=== PATIENT | male | born 1940 | race Caucasian/White ===

== ENCOUNTER 2016-08-02 20:39 | Inpatient (IN) | payer MEDICARE ==
[~2016-08-02] VITALS: Ht 175.2 cm; Wt 77.4 kg
[2016-08-02] VITALS (7 sets, daily range): BP systolic 112–137; BP diastolic 32–67
--- NOTE | ~2016-08-02 | PR ---
[place], [place] PROGRESS NOTE NAME: LINK VENTURA JR UNIT #: [id number] ROOM: 525 DOCTOR: MEÑO KHAN MD BIRTHDATE: [birth year] DOS: 08/06/2016 PULMONARY FOLLOWUP NOTE SUBJECTIVE: He has been noted comfortable at this time with reduction in shortness of breath. The coughing has been resolving. There were no symptoms of chest pain. Bronchoscopy completed yesterday, significant reduction in the cough. OBJECTIVE: VITAL SIGNS: Normal temperature, respiratory rate 20, heart rate 81, blood pressure 122/54. The pulse oxygen saturation on 3 liters nasal cannula was 96% saturation. HEENT: Showed no new change. NECK: Supple. CARDIOVASCULAR: S1, S2 is audible. LUNGS: Noted without any wheezing or crackles at this time. ABDOMEN: Soft, nontender. LABORATORY DATA: CBC this morning was noted as mild anemia, otherwise normal CBC. Culture of the sputum of the patient noted moderate growth of Pseudomonas aeruginosa sensitive to all the antibiotics including fluoroquinolones. The bronchial washing culture noted with heavy growth of gram-negative bacilli. IMPRESSION: 1. The patient with acute Pseudomonas aeruginosa tracheobronchitis with acute exacerbation of chronic obstructive pulmonary disease as well. 2. History of chronic nicotine dependence. PLAN OF TREATMENT: Continuation of antibiotics, bronchodilators and oxygen supplementation. Potential discharge, the patient could be considered for use of the ciprofloxacin as the antibiotic of choice for this patient for oral medications. Other previous treatment at this time to be continued. Usual care. [place], [place] PROGRESS NOTE NAME: LINK VENTURA JR UNIT #: [id number] ROOM: [facility] DOCTOR: MEÑO KHAN MD BIRTHDATE: [birth year] MEÑO HOLDER MD CM:PNTRANS [id number] MEÑO JENNINGS MD 08/07/16 9207 interface
--- NOTE | ~2016-08-02 | CON ---
[place], [place] REPORT OF CONSULTATION [facility]: [id number] UNIT #: [id number] ROOM: 525 DOCTOR: MEÑO KHAN MD BIRTHDATE: [birth year] DOS: 08/03/2016 PULMONARY CONSULTATION EVALUATION AND MANAGEMENT Consultation was requested by the hospitalist services for assessment of the abnormal respiratory symptoms. HISTORY OF PRESENT ILLNESS: This is a 76-year-old white male known to me with history of uncomplicated moderate persistent bronchial asthma as well as centrilobular emphysema and other problems. The patient presented to the hospital for the patient as he has been noted with increased coughing with sputum expectoration and shortness breath, which has been present for about 3 days. The patient has not been seen in my office for the patient or seen by any physician as he was afraid of getting flu infection. He has been noted marked worsening of the respiratory symptoms and finally decided to come to the Emergency Room for patient on 08/02/2016. The patient has been assessed and the patient has been hospitalized patient for further medical management of the ongoing respiratory symptoms with exacerbation of COPD and other problems. REVIEW OF SYSTEMS: CONSTITUTIONAL: The patient noticed symptoms of fatigue and tiredness. Denies symptoms of fever or chills. EYES: Denies any burning, redness, or tenderness. EARS, NOSE, AND THROAT: No sore throat, hoarseness, otalgia, or postnasal drainage. CARDIOVASCULAR: Denies anginal pain, edema of the lower extremities or palpitations. GASTROINTESTINAL: Denies dysphagia, nausea, vomiting, diarrhea, abdominal pain, hematemesis, melena, or hematochezia. GENITOURINARY: History of bladder cancer, which has been known previously, treated for this patient with chemotherapy and conservative treatment. Aggressive treatment such as cystectomy was not done for the patient because of the patient's poor pulmonary status with advanced COPD. PAST MEDICAL HISTORY: 1. History of chronic persistent nicotine dependence. 2. History of vagus nerve compression. 3. Gastroesophageal reflux. 4. Essential hypertension. 5. Hypercholesterolemia. 6. Chronic hypercapnic and hypoxic respiratory failure, use of oxygen 3 LPM. PAST SURGICAL HISTORY: 1. Fracture of the nose of the patient, which has been corrected many years ago. 2. Right carotid endarterectomy. 3. Cataract extraction with lens implantation. 4. Past therapeutic bronchoscopies. 5. Cystoscopy and biopsy of the bladder mass. [place], [place] REPORT OF CONSULTATION NAME: LINK [facility]ENTUR[facility] JR [facility]: [id number] UNIT #: [id number] ROOM: [facility] DOCTOR: MEÑO KHAN MD BIRTHDATE: [birth year] SOCIAL HISTORY: The patient is , lives at home and has 4 children. Denies history of alcohol or illicit drug use. Tobacco use was noted for this patient as about half to a pack of cigarettes per day for this patient at home and previously has used up to 2 packs of cigarettes per day. There was history of occupational related pulmonary exposure history. FAMILY HISTORY: The patient was noted with mother from complications of lung cancer at the age of 6767 years old. Father from complications of COPD. CURRENT MEDICATIONS: Administered noted use of IV Solu-Medrol, DuoNeb, Lovenox for DVT prophylaxis, Zithromax, Rocephin and other p.r.n. medications administration. DRUG ALLERGIES: Noted allergy to MORPHINE SULFATE causing anxiety. PHYSICAL EXAMINATION: GENERAL: A 76-year-old male who has been currently noted awake and alert without any distress. Height of 5 feet 9 inches, weight 170 pounds, BMI 25.2, using oxygen supplementation nasal cannula. VITAL SIGNS: Normal temperature since admission, respiratory rate of 18-20, heart rate of 91-100, blood pressure 110/54-129/67. The pulse oxygen saturation on 3 liters nasal cannula 95% saturation. HEENT: On examination, head was atraumatic. Eyes nonicterus. NECK: Supple. Oral mucosa was moist. CARDIOVASCULAR SYSTEM: S1, S2 audible. LUNGS: Diffuse reduction in breath sounds with expiratory wheezing without any crackles. ABDOMEN: Soft, nontender. Bowel sounds present. CENTRAL NERVOUS SYSTEM: For this patient cranial nerves 2-12 intact. No focal deficit. MUSCULOSKELETAL SYMPTOMS: No deformities. SKIN: No lesions or rashes. Chronic bruising of the skin was noted related to medications. LABORATORY DATA: CMP of the patient that were done yesterday for the patient in the Emergency Room, BUN of 36, creatinine was normal, glucose 106, carbon dioxide 36. Troponin for the patient noted as normal, first set. Arterial blood gas on 4 liters oxygen, pH of 7.43, pCO2 of 51, pO2 of 83.4. The CK-MB, troponin of the patient, which was done for the patient shows MB mildly elevated 4.0, normal CK and troponin. CBC of the patient of this morning, WBC count normal, hemoglobin 12.4, hematocrit 39.5 and platelet count was normal. The repeat CK-MB and troponin of the patient this morning was noted MB minimally elevated at 3.9, normal CPK and troponins. CMP this morning, BUN 31, glucose was normal. CO2 37, remaining electrolytes were normal. The chest x-ray of the patient that was done for the patient in the hospital for the patient yesterday in the Emergency Room, 1 view of the patient shows hyperinflated changes of COPD without any acute pulmonary infiltration. The patient has x-ray of the abdomen for the patient was described without any acute abnormalities. [place], [place] REPORT OF CONSULTATION NAME: LINK VENTURA JR UNIT #: [id number] ROOM: [facility] DOCTOR: MEÑO KHAN MD BIRTHDATE: [birth year] IMPRESSION: 1. The patient who has been currently admitted to the hospital with history of chronic hypercapnia and hypoxic respiratory failure with acute exacerbation of chronic obstructive pulmonary disease and acute bacterial bronchitis. 2. Chronic nicotine dependency. 3. Mild azotemia for this patient, medication related or intravascular volume depletion of the patient has been considered. 4. Metabolic alkalosis secondary to chronic hypercarbia. 5. History of cancer of the bladder as well. PLAN OF TREATMENT: Continue antibiotics, bronchodilators and oxygen supplementation. Obtain the sputum for Gram stain and culture. Mucinex for the patient will be added to the treatment as well. Further treatment changes will be done based on the progression of the illness. Usual care. Other treatment and plan of therapy. Obtain a PA and lateral chest x-ray of the patient to assess any occult pneumonia. MEÑO HOLDER MD CM:CONSTR:REPORT OF CONSULTATION 1036 08/03/16 2157 interface
--- NOTE | ~2016-08-02 | PR ---
[place], [place] PROGRESS NOTE NAME: LINK VENTURA JR UNIT #: [id number] ROOM: 525 DOCTOR: MEÑO KHAN MD BIRTHDATE: [birth year] DOS: 08/04/2016 PULMONARY PROGRESS NOTE SUBJECTIVE: The patient continues with cough and shortness of breath and wheezing. The symptoms have been noted partially improved. Has been noted only scant amount of sputum expectoration, which was sent for culture ____. The patient with final culture results were pending. Preliminary showing normal moisés. OBJECTIVE: VITAL SIGNS: For the patient, which has been recorded showed the temperature of the patient recorded as normal. The respiratory rate of 18, heart rate of 89, blood pressure of 92/52. The pulse oxygen saturation 3 liters nasal cannula was 97% saturation. HEENT: Examination shows head was atraumatic. NECK: Supple. CARDIOVASCULAR SYSTEM: S1, S2 audible. LUNGS: Moderate decreased breath sound, diffuse expiratory wheezing, no crackles. ABDOMEN: Soft, nontender. LABORATORY DATA: BMP today: BUN 35, creatinine was normal. CO2 of 35. CBC today: WBC count 13,000, hemoglobin 11.6, hematocrit 36.9, platelet count 237,000. The preliminary culture of the sputum for the patient was pending. IMPRESSION: The patient with ongoing acute exacerbation of chronic obstructive pulmonary disease with acute tracheobronchitis of the patient was noted. Chest x-ray of the patient on 08/03/2016 does not show any pulmonary infiltration, changes of chronic obstructive pulmonary disease were present. PLAN OF TREATMENT: The patient had been assessed ____ for the bronchoscopy of the patient to be done in the morning to help clear the mucus impaction of major airways. Risk and benefits has been understood by the patient. Procedure was scheduled to be done in the morning. [place], [place] PROGRESS NOTE NAME: LINK VENTURA JR UNIT #: [id number] ROOM: [facility] DOCTOR: MEÑO KHAN MD BIRTHDATE: [birth year] MEÑO HOLDER MD CM:PNTRANS [phone] MEÑO JENNINGS MD 08/05/16 0725 interface
--- NOTE | ~2016-08-02 | PR ---
[place], [place] PROGRESS NOTE NAME: LINK VENTURA JR UNIT #: [id number] ROOM: 525 DOCTOR: MEÑO KHAN MD BIRTHDATE: [birth year] DOS: 08/05/2016 PULMONARY PROGRESS NOTE SUBJECTIVE: The patient was seen and examined on 08/05/2016. He has been still noted symptoms of coughing, wheezing and shortness breath. He was noted n.p.o. past midnight for bronchoscopy, which is planned for today. The patient denies any symptoms of chest pain or any abdominal pain. OBJECTIVE: VITAL SIGNS: For the patient which has been recorded showed the temperature noted as normal, respiratory rate 17, heart rate 95, blood pressure 137/65 132/66. Pulse oxygen saturation of the patient recorded on 3 L nasal cannula 94% saturation. HEENT: No acute change. NECK: Supple. Head was atraumatic. CARDIOVASCULAR SYSTEM: S1, S2 audible. LUNGS: Noted with persistent expiratory wheezing bilaterally. There were no crackles. ABDOMEN: Soft, nontender. LABORATORY DATA: Preliminary culture results of the sputum of the patient noted moderate growth of gram-negative bacilli at this time with pending identification sensitivities. CBC of the patient this morning, WBC count 13.6, hemoglobin 12.7, hematocrit 41.2 with the platelet count of 279,000, 92% segmented neutrophil. IMPRESSION: 1. The patient with the severe acute tracheobronchitis gram-negative infection, pending identification and sensitivity, persistent respiratory symptoms, preoperative bronchoscopy. 2. History of chronic nicotine dependence. PLAN OF TREATMENT: No changes in the plan of management, except change in the antibiotic of the patient for better gram-negative coverage with the use of the IV Zosyn until the culture results will be known. The possibility of this current problem would remain for this patient as Stenotrophomonas maltophilia for the patient consideration as well. The bronchoscopy will be completed. If any modification in the treatment of the patient necessary will be ordered after the bronchoscopy. [place], [place] PROGRESS NOTE NAME: LINK VENTURA JR UNIT #: [id number] ROOM: 525 DOCTOR: MEÑO KHAN MD BIRTHDATE: [birth year] MEÑO HOLDER MD CM:PNTRANS [phone] MEÑO JENNINGS MD 08/06/163 interface
--- NOTE | ~2016-08-02 | PROC NOTE ---
[place], [place] PROCEDURE NOTE NAME: [facility] JR [id number] UNIT #: [id number] ROOM: [facility] DOCTOR: GLORY JENNINGS MD,MEÑO BIRTHDATE: [birth year] DOS: 08/05/2016 PROCEDURE: Bronchoscopy. PREOPERATIVE DIAGNOSES: Persistent cough and wheezing with maximum medical therapy. POSTOPERATIVE DIAGNOSES: Evidence of mucus impaction, ongoing tracheobronchitis were noted. There were no endobronchial lesions. PROCEDURE DESCRIPTION: Informed consent was obtained from the patient. He was brought to the OR and placed in the supine position. Conscious sedation administered by the Anesthesia Department. After achieving appropriate sedation, airway introduced into the mouth. Bronchoscope advanced to the airway into laryngeal area. The epiglottis and vocal cords were seen. The bronchoscope for this patient advanced to the vocal cords into the tracheal lumen. The tracheal lumen shows moderate amount of very thick mucoid secretion with some purulent secretions suctioned out to the herminia level. All the secretions was suctioned out. The herminia was noted sharp. Right upper, right middle, right lower, left upper, and lingular lower lobe bronchi were all examined. The bronchial washings for this patient were sent for all the appropriate cultures. Procedure well tolerated without any complications. Postoperative findings were discussed with the patient's spouse, the patient after the completion of the procedure. No immediate changes in the treatment for the patient necessary needs to be done. MEÑO HOLDER MD CM:PROCNOTE:PROCEDURE NOTE [phone] MEÑO JENNINGS MD
[~2016-08-02 20:39] MED LIST: ALBUTEROL; ALBUTEROL SULF0.5 M1 INH; ALBUTEROL2.5 MG/0.5 INH; ASPIRIN ADULT L81 M1 PO; ASPIRIN325 MG PO; ATENOLOL50 M1 PO; ATENOLOL50 MG PO; ATIVAN0.5 MG PO; BACTRIM DS 8001 TA1 PO; CEFUROXIME AXE250 MG PO; CENTRUM SILVER1 TA2 PO; CHEST CONGESTI400 MG PO; CILOXAN 5 ML5 ML OT; CIPRO500 MG PO; DALI500T PO; DALIRESP500 MC1 PO; DELTASONE10 MG PO; FLUNISOLID0.025 MG/A NS; FUROSEMIDE20 MG; FUROSEMIDE20 MG PO; GUAFENESIN400 MG PO; GUAIFENESIN600 MG PO; GUIAFENESIN/PSE1 TE1; HYDROCODONE BIT1 T11 PO; KEFLEX500 MG PO; LASIX20 MG PO; MAGOX 400400 MG PO; MUCINEX600 MG PO; MULTIVITAMIN1 TA1 PO; OMEPRAZOLE D/R20 MG PO; OMEPRAZOLE20 M2 PO; OXYCODONE AND A1 TA4 PO; OXYGEN NAS; PERCOCET 325 MG1 TA6 PO; PREDNISONE; PREDNISONE PO; PREDNISONE10 MG PO; PREDNISONE20 M1 PO; PREDNISONE20 MG PO; PROCHLORPERAZIN10 MG PO; PROVENTIL; PROVENTIL0.09 MG/A1 INH; Percocet 325 MG1 TAB PO; SIMVASTATIN80 MG PO; SPIRIVA18 MCG IH; SPIRIVA18 MCG INH; SPIRIVA18 MCG PO; SYMBICORT1 AE1 IH; SYMBICORT1 AE1 INH; TURMERIC500 MG PO; VENTOLIN 02.5 MG/3 M NEB; VITAMIN C1000 M5 PO; VITAMIN D1000 IU PO; ZITHROMAX250 MG PO; ZOCOR20 MG PO; ZOCOR80 MG PO; [UNRECOGNIZED DRUG - OTHER] PO
[2016-08-02 21:15] LABS: BASO % 0.2 % (0.0-1.0); HEMATOCRIT 39.3 % (42.0-52.0); HEMOGLOBIN 12.4 g/dl (14.0-18.0); LYMPH # 1.8 10*3/uL (1.3-4.4); LYMPH % 16.7 % (27.0-41.0); MEAN CELL VOLUME 98.3 fl (80.0-94.0); MEAN CORPUSCULAR HGB CONC 31.6 g/dl (33.0-37.0); MEAN PLATELET VOLUME 9.4 fl (9.6-12.3); MONO # 0.7 10*3/uL (0.1-1.0); MONO % 6.6 % (3.0-9.0); NEUT % 76.1 % (47.0-73.0); PLATELET COUNT AUTOMATED 224 10*3/uL (130-400); RED CELL DISTRI WIDTH 12.9 % (0-14.5); WHITE BLOOD COUNT 10.5 10*3/uL (4.8-10.8)
[2016-08-02 21:32] LABS: ALBUMIN 3.3 gm/dl (3.1-4.5); ALKALINE PHOSPHATASE 101 U/L (45-117); BILIRUBIN, TOTAL 0.5 mg/dl (0.2-1.0); BUN 36 mg/dl (7-24); CARBON DIOXIDE 36 mmol/L (21-32); CHLORIDE 98 mmol/L (98-107); EST GLOM FILT AFRICAN AMERICAN > 60 ml/min; GLUCOSE 106 mg/dL (65-99); MAGNESIUM 2.8 mg/dL (1.5-2.1); POTASSIUM 4.5 mmol/L (3.5-5.1); SGOT/AST 21 IU/L (3-35); SGPT/ALT 24 U/L (12-78); SODIUM 142 mmol/L (136-145); TOTAL PROTEIN 6.8 gm/dL (6.4-8.2)
[2016-08-02 21:41] LABS: ABG BASE EXCESS 8.1 mmol/L (-2.0-2.0); ABG CO2 CONTENT 35.1 mmol/L (23-27); ABG HCO3 33.5 mmol/l (22-26); ABG TEMPERATURE 98.3 F (98.0-99.0); ARTERIAL BLOOD GAS PH 7.43 (7.35-7.45); ARTERIAL BLOOD GAS PO2 83.5 mmHg (80-90)
[2016-08-02] MEDS ORDERED: CARAFATE1 G1 PO (21:41)
[2016-08-02] MEDS ORDERED: PLAVIX75 M1 PO (21:42)
[2016-08-03] VITALS: BP 118/54
[2016-08-03 00:39] LABS: TROPONIN I 0.028 ng/ml (<0.045)
[2016-08-03 06:34] LABS: BASO % 0.2 % (0.0-1.0); HEMATOCRIT 39.5 % (42.0-52.0); HEMOGLOBIN 12.4 g/dl (14.0-18.0); LYMPH # 0.5 10*3/uL (1.3-4.4); LYMPH % 9.3 % (27.0-41.0); MEAN CELL VOLUME 98.3 fl (80.0-94.0); MEAN CORPUSCULAR HGB 30.8 pg (27.0-31.0); MEAN CORPUSCULAR HGB CONC 31.4 g/dl (33.0-37.0); MEAN PLATELET VOLUME 9.7 fl (9.6-12.3); MONO # 0.1 10*3/uL (0.1-1.0); MONO % 0.9 % (3.0-9.0); NEUT # 5.1 10*3/uL (2.3-7.9); NEUT % 88.9 % (47.0-73.0); PLATELET COUNT AUTOMATED 228 10*3/uL (130-400); RED BLOOD COUNT 4.02 10*6/uL (4.50-5.90); RED CELL DISTRI WIDTH 12.8 % (0-14.5); WHITE BLOOD COUNT 5.7 10*3/uL (4.8-10.8)
[2016-08-03 06:44] LABS: CKMB 3.9 ng/ml (0.5-3.6); TROPONIN I 0.016 ng/ml (<0.045)
[2016-08-03 07:06] LABS: INTERNATIONAL NORM RATIO 0.9 (2.0-3.5); PROTHROMBIN TIME 9.4 SECONDS (9.0-12.4)
[2016-08-03 07:06] LABS: ALBUMIN 3.2 gm/dl (3.1-4.5); BUN 31 mg/dl (7-24); CARBON DIOXIDE 37 mmol/L (21-32); CHLORIDE 99 mmol/L (98-107); CHOLESTEROL 186 mg/dL (<200); EST GLOM FILT AFRICAN AMERICAN > 60 ml/min; GLUCOSE 132 mg/dL (65-99); MAGNESIUM 2.6 mg/dL (1.5-2.1); POTASSIUM 4.4 mmol/L (3.5-5.1); SGOT/AST 19 IU/L (3-35); SGPT/ALT 21 U/L (12-78); SODIUM 142 mmol/L (136-145)
[2016-08-03 07:14] LABS: ALKALINE PHOSPHATASE 96 U/L (45-117); BILIRUBIN, TOTAL 0.4 mg/dl (0.2-1.0); FREE T4 1.22 ng/dl (0.76-1.46); HDL CHOLESTEROL 104 mg/dl (40-60); LDL CHOLESTEROL 73 mg/dL (9-159); THYROID STIM HORMONE (HS) 0.401 uIU/ml (0.358-4.75); TOTAL PROTEIN 6.5 gm/dL (6.4-8.2); TRIGLYCERIDES 47 mg/dl (<150); VLDL CHOLESTEROL 9 mg/dL (6-40)
[2016-08-03 07:23] LABS: BILIRUBIN NEGATIVE (NEGATIVE); BLOOD NEGATIVE (NEGATIVE); CLARITY CLEAR (CLEAR); COLOR YELLOW (YELLOW); GLUCOSE TRACE (NEGATIVE); KETONE NEGATIVE (NEGATIVE); LEUKO ESTERASE NEGATIVE (NEGATIVE); NITRITE NEGATIVE (NEGATIVE); PH 6.5 (5.0-9.0); PROTEIN NEGATIVE (NEGATIVE); SPECIFIC GRAVITY 1.015 (1.005-1.030); UROBILINOGEN 0.2 E.U./dl (0.2-1.0)
[2016-08-03 07:39] LABS: VITAMIN D, 25-HYDROXY 41.2 ng/mL (30-100)
[2016-08-03 07:40] LABS: FOLIC ACID 14.72 ng/mL (>5.38)
[2016-08-03 07:54] LABS: BACTERIA TRACE; EPITHELIAL CELLS 0-2; URINE REFLEX COMMENT NO (NO)
[2016-08-03 08:00] VITALS: BP 116/54
[2016-08-03 08:28] LABS: HEMOGLOBIN A1c 5.5 % (4.8-5.6)
[2016-08-03 12:00] VITALS: BP 126/58
[2016-08-03 12:25] LABS: CKMB 4.2 ng/ml (0.5-3.6); TROPONIN I 0.018 ng/ml (<0.045)
[2016-08-03 16:00] VITALS: BP 117/51
[2016-08-03 20:00] VITALS: BP 110/85
[2016-08-04] VITALS: BP 114/61
[2016-08-04 06:50] LABS: HEMATOCRIT 36.9 % (42.0-52.0); HEMOGLOBIN 11.6 g/dl (14.0-18.0); IG # 0.1 10*3/uL (0.0-0.1); LYMPH # 1.5 10*3/uL (1.3-4.4); LYMPH % 11.2 % (27.0-41.0); MEAN CELL VOLUME 99.2 fl (80.0-94.0); MEAN CORPUSCULAR HGB 31.2 pg (27.0-31.0); MEAN CORPUSCULAR HGB CONC 31.4 g/dl (33.0-37.0); MEAN PLATELET VOLUME 9.7 fl (9.6-12.3); MONO # 0.8 10*3/uL (0.1-1.0); MONO % 5.9 % (3.0-9.0); NEUT # 10.7 10*3/uL (2.3-7.9); NEUT % 82.5 % (47.0-73.0); PLATELET COUNT AUTOMATED 237 10*3/uL (130-400); RED BLOOD COUNT 3.72 10*6/uL (4.50-5.90); RED CELL DISTRI WIDTH 13.1 % (0-14.5)
[2016-08-04 07:29] LABS: BUN 35 mg/dl (7-24); CARBON DIOXIDE 35 mmol/L (21-32); CHLORIDE 103 mmol/L (98-107); EST GLOM FILT AFRICAN AMERICAN > 60 ml/min; GLUCOSE 125 mg/dL (65-99); POTASSIUM 4.4 mmol/L (3.5-5.1); SODIUM 144 mmol/L (136-145)
[2016-08-04 08:00] VITALS: BP 142/73
[2016-08-04 12:00] VITALS: BP 92/52
[2016-08-04 16:00] VITALS: BP 133/62
[2016-08-04 20:00] VITALS: BP 123/60
[2016-08-05] VITALS (9 sets, daily range): BP systolic 128–142; BP diastolic 53–78
[2016-08-05 06:55] LABS: HEMATOCRIT 41.2 % (42.0-52.0); HEMOGLOBIN 12.7 g/dl (14.0-18.0); MEAN CELL VOLUME 99.3 fl (80.0-94.0); MEAN CORPUSCULAR HGB 30.6 pg (27.0-31.0); MEAN CORPUSCULAR HGB CONC 30.8 g/dl (33.0-37.0); MEAN PLATELET VOLUME 9.6 fl (9.6-12.3); PLATELET COUNT AUTOMATED 279 10*3/uL (130-400); RED BLOOD COUNT 4.15 10*6/uL (4.50-5.90); RED CELL DISTRI WIDTH 13.1 % (0-14.5); WHITE BLOOD COUNT 13.6 10*3/uL (4.8-10.8)
[2016-08-05 07:18] LABS: LYMPHOCYTE # 0.8 10*3/uL (1.3-4.4); METAMYELOCYTES 1 % (0-0); MONOCYTE # 0.1 10*3/uL (0.1-1.0); NEUTROPHIL # 12.5 10*3/uL (2.3-7.9); NEUTROPHILS 92 % (47-73); TOTAL CELLS COUNTED 100 #CELLS
[2016-08-05 07:19] LABS: PLATELET SUFFICIENCY NORMAL (NORMAL)
[2016-08-05 14:07] LABS: ORGANISM ID Not indicated. (.); SPECIMEN SOURCE Urine (.); STREPTOCOCCUS PNEUMONIAE AG Negative (Negative)
[2016-08-06] VITALS: BP 129/54
[2016-08-06 07:03] LABS: BASO % 0.1 % (0.0-1.0); HEMOGLOBIN 12.1 g/dl (14.0-18.0); LYMPH # 0.8 10*3/uL (1.3-4.4); LYMPH % 8.1 % (27.0-41.0); MEAN CELL VOLUME 99.2 fl (80.0-94.0); MEAN CORPUSCULAR HGB 30.8 pg (27.0-31.0); MEAN PLATELET VOLUME 9.8 fl (9.6-12.3); MONO # 0.3 10*3/uL (0.1-1.0); MONO % 3.1 % (3.0-9.0); NEUT # 8.4 10*3/uL (2.3-7.9); NEUT % 88.3 % (47.0-73.0); PLATELET COUNT AUTOMATED 239 10*3/uL (130-400); RED BLOOD COUNT 3.93 10*6/uL (4.50-5.90); RED CELL DISTRI WIDTH 12.9 % (0-14.5); WHITE BLOOD COUNT 9.6 10*3/uL (4.8-10.8)
[2016-08-06 08:00] VITALS: BP 122/54
[2016-08-06] MEDS ORDERED: CIPRO500 MG PO (11:48)
[2016-08-06] MEDS ORDERED: PREDNISONE10 MG PO (11:58)
[2016-08-06 12:00] VITALS: BP 121/67
[2016-08-06 16:10] LABS: ACID FAST SPEC PROCESSING Concentration (.)
== END 2016-08-06 13:57 | disposition home or self-care (01) | DRG 871 ==
LOC: ED 20:39 → EDHOLD 22:19 → 5E 22:19
PROVIDERS: Emergency Medicine Emergency Medical Services; Family Medicine; Hospitalist; Internal Medicine; Internal Medicine Hospice and Palliative Medicine
PROC: 0BCB8ZZ Extirpation of Matter from Left Lower Lobe Bronchus, Via Natural or Artificial Opening Endoscopic (ICD-10-PCS; principal; 2016-08-05)
PROC: 0BC18ZZ Extirpation of Matter from Trachea, Via Natural or Artificial Opening Endoscopic (ICD-10-PCS; 2016-08-05)
PROC: 0BC48ZZ Extirpation of Matter from Right Upper Lobe Bronchus, Via Natural or Artificial Opening Endoscopic (ICD-10-PCS; 2016-08-05)
PROC: 0BC88ZZ Extirpation of Matter from Left Upper Lobe Bronchus, Via Natural or Artificial Opening Endoscopic (ICD-10-PCS; 2016-08-05)
PROC: 0BC58ZZ Extirpation of Matter from Right Middle Lobe Bronchus, Via Natural or Artificial Opening Endoscopic (ICD-10-PCS; 2016-08-05)
PROC: 0BC68ZZ Extirpation of Matter from Right Lower Lobe Bronchus, Via Natural or Artificial Opening Endoscopic (ICD-10-PCS; 2016-08-05)
PROC: 0BC78ZZ Extirpation of Matter from Left Main Bronchus, Via Natural or Artificial Opening Endoscopic (ICD-10-PCS; 2016-08-05)
PROC: 0BC38ZZ Extirpation of Matter from Right Main Bronchus, Via Natural or Artificial Opening Endoscopic (ICD-10-PCS; 2016-08-05)
DX: A41.9 Sepsis, unspecified organism (principal); J18.9 Pneumonia, unspecified organism; J96.12 Chronic respiratory failure with hypercapnia; J96.11 Chronic respiratory failure with hypoxia; E87.3 Alkalosis; E44.0 Moderate protein-calorie malnutrition; J44.1 Chronic obstructive pulmonary disease with (acute) exacerbation; J44.0 Chronic obstructive pulmonary disease with (acute) lower respiratory infection; Z99.81 Dependence on supplemental oxygen; I10 Essential (primary) hypertension; K21.9 Gastro-esophageal reflux disease without esophagitis; E78.5 Hyperlipidemia, unspecified; Z85.51 Personal history of malignant neoplasm of bladder; Z80.1 Family history of malignant neoplasm of trachea, bronchus and lung; Z88.5 Allergy status to narcotic agent; R07.82 Intercostal pain; I25.10 Atherosclerotic heart disease of native coronary artery without angina pectoris; J45.40 Moderate persistent asthma, uncomplicated; R79.89 Other specified abnormal findings of blood chemistry; J20.9 Acute bronchitis, unspecified; B96.5 Pseudomonas (aeruginosa) (mallei) (pseudomallei) as the cause of diseases classified elsewhere; Z68.25 Body mass index [BMI] 25.0-25.9, adult

== ENCOUNTER 2016-12-20 19:39 | Inpatient (IN) | payer MEDICARE ==
[~2016-12-20] VITALS: Ht 177.8 cm; Wt 70.5 kg
--- NOTE | ~2016-12-20 | CON ---
[place], [place] REPORT OF CONSULTATION NAME: LINK VENTURA JR [facility] #: [id number] UNIT #: [id number] ROOM: 406 DOCTOR: SIENA BEJARANO M.D. BIRTHDATE: [birth year] DOS: 12/21/2016 HISTORY OF PRESENT ILLNESS: This is a 76-year-old male who was admitted to the Emergency Room Department for shortness of breath and chest tightness that he has been having for 2 weeks. He has apparently had been having increasing shortness of breath for 2 weeks and had developed midsternal chest discomfort yesterday. The patient has a history of DE in 03/2016. He had received coronary stents at that time. He states that the discomfort that he felt did not feel the same as it did in the past when he had his heart attack. He has a very large leg ulceration on his right lower extremity and that is why Wound Care has been consulted. Apparently, the patient stated that he had large wound that developed after he scraped it on a pizza boxes, this is approximately 2-3 weeks ago. He states it turned into a blister that appeared to be blood filled and he states his actually drained the blister at home and apparently also cut away some of the tissue according to the patient. He said since then he has been keeping it open during the day and covered at night and most recently he recalls using a maxi pad to cover the wound. In any case, he does not have any severe discomfort coming from the wound. No other specific complaints regarding the wound at this time. He does, however, state that he had a similar wound on the left leg and it took quite a long time to heal and did eventually heal as well. He has never had have any kind of Unna boots or compression that he is aware of. PAST MEDICAL HISTORY: Significant for coronary artery disease, status post stent placement, COPD, chronic respiratory failure with hypercapnia, dyslipidemia, essential hypertension, GERD, history of bladder cancer, moderate malnutrition. He is status post bilateral cataract extraction and right-sided carotid endarterectomy. SOCIAL HISTORY: He does not drink; however, he is a smoker and he continues to smoke a few cigarettes a day. FAMILY HISTORY: Significant for lung cancer in the mother and COPD in his father. ALLERGIES: MORPHINE. MEDICATIONS: From home that he is on are albuterol nebulizers 2.5 mg every 4 hours and albuterol inhaler 2 puffs every 6 hours p.r.n., aspirin 81 p.o. daily, Symbicort 160/4.5 mcg 2 puffs inhalation b.i.d., vitamin D3 3000 units daily, Cipro he is on 500 p.o. b.i.d., Plavix 75 p.o. daily, Lasix 20 mg p.o. daily. He is on guaifenesin for cough, congestion p.r.n., and omeprazole 20 mg p.o. daily, oxygen 3-1/2 liters daily. He is on a prednisone taper 10 mg every other day, simethicone 125 mg p.o. b.i.d. p.r.n., Zocor 40 p.o. at bedtime, Carafate 1 gram p.o. q.i.d. and Spiriva 1 inhalation daily. REVIEW OF SYSTEMS: Currently, he feels fine. His breathing is stable. He denies any nausea, vomiting, abdominal pains, or diarrhea. He said he still has had occasional chest tightness since yesterday. It does not appear to be exertional. He denies any weight loss or weight gain, vision changes, any [place], [place] REPORT OF CONSULTATION NAME: LINK VENTURA JR [place] UNIT #: [id number] ROOM: [facility] DOCTOR: SIENA BEJARANO M.D. BIRTHDATE: [birth year] significant pain with the wound at the present time PHYSICAL EXAMINATION: VITAL SIGNS: Temperature is 97.6, pulse is 94, respirations are 20, blood pressure is 108/54. GENERAL: This is an elderly male who appears younger than his stated age, pleasant and cooperative and in no acute distress. His oropharynx is clear. He has multiple teeth missing. HEENT: Extraocular movements are intact. I do not appreciate any JVD. LUNGS: Clear to auscultation anteriorly. He does have a productive cough noted. CARDIOVASCULAR: S1, S2 regular rate and rhythm. ABDOMEN: Soft and nontender and nondistended. EXTREMITIES: He has some edema noted on the right lower extremity, there is no calf tenderness. He does have a healed scar in his left leg. His pedal pulses are palpable. His toes are warm. He has a very large ulceration noted on the anterior right leg, which is circular in nature and covered with dried adherent slough and large amounts of necrotic tissue. There is no odor or cellulitis present. LABORATORY DATA: Show a sodium of 138, potassium of 5.1, BUN of 20, creatinine is 0.97, glucose is 81. LFTs are within normal limits, except an elevated alkaline phosphatase. Troponin is 0.040. Albumin is 2.6. White count is 10, hemoglobin is 14, platelets are 240. The patient had an ABG which was, pH 7.37, pCO2 of 50, pO2 152. Chest x-ray showed peripheral left upper lobe lungs, small spiculated density and peripheral left lower lobe pleural thickening and/or mass, recommend CT. He did have a CT of the chest done and he has severe bullous emphysema, no pulmonary embolus, small bilateral pleural effusions with associated atelectasis. Due to the extensive necrosis seen on the wound, I did recommend debridement. The patient was agreeable. The area was cleansed and prepped. Cetacaine spray was used for topical anesthesia. The pre-debridement measurements were approximately 7 cm x 6.5 cm. The area was debrided with forceps and scissors. There was moderate to brisk bleeding that was controlled with pressure. The tissue removed was devitalized tissue only. The patient tolerated the debridement well. The post-debridement measurements are 7 x 6 x 0.1. 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 I went ahead and took the liberty of ordering venous and arterial studies. The patient is having a cardiac workup at this time. [place], [place] REPORT OF CONSULTATION NAME: LINK VENTURA JR UNIT #: [id number] ROOM: [facility] DOCTOR: SIENA BEJARANO M.D. BIRTHDATE: [birth year] SIENA BEJARANO MD CM:CONSTR:REPORT OF CONSULTATION 1329 12/22/16 0100 interface
--- NOTE | ~2016-12-20 | ST ---
[place], [place] EXERCISE STRESS TEST REPORT [facility]: [facility]: [id number] UNIT #: [id number] ROOM: 406 DOCTOR: TUAN RAMIREZ MD BIRTHDATE: [birth year] DOS: 12/21/2016 LEXISCAN STRESS EKG. REFERRING PHYSICIAN: Dr. Wheeler. INDICATION: Central chest pain. The patient underwent standard protocol Lexiscan stress EKG. Baseline rhythm was sinus tachycardia with heart rate of 101, blood pressure 118/68. Peak heart rate was 108 with a blood pressure 102/68. The patient had no chest pain, no ischemic changes. No arrhythmias were noted. SUMMARY OF FINDINGS: Unremarkable Lexiscan stress EKG. Please see separate report for nuclear perfusion scan imaging results. TUAN RAMIREZ MD CM:STRESS:EXERCISE STRESS TEST REPORT [id number] TUAN RAMIREZ MD
--- NOTE | ~2016-12-20 | PR ---
[place], [place] PROGRESS NOTE [facility]: [id number] UN[facility] #: [id number] ROOM: 406 DOCTOR: SIENA BEJARANO M.D. BIRTHDATE: [birth year] DOS: 12/22/2016 WOUND CARE PROGRESS NOTE SUBJECTIVE: The patient was seen today for followup. Patient reports no specific complaints with the wound. He has a Tubigrip stocking on and his dressings are intact. There is no strikethrough noted. However, unfortunately, the Tubigrip is starting up at the ankle and not at the mid-foot like I had wanted it to. He offers no other specific complaints. OBJECTIVE: VITAL SIGNS: Stable. Temperature is 97.7, pulse is 94, respirations 20, blood pressure 106/68. EXTREMITIES: The dressing was removed. The wound looks fairly clean. It is stable. There is minimal drainage and no sign of infection. Edema has also seemed to have improved quite a bit. DIAGNOSTIC STUDIES: He did have an arterial ultrasound. Unfortunately ABIs were not done. There is diffuse atherosclerosis. No hemodynamically significant peripheral vascular disease noted. Venous Dopplers were negative. ASSESSMENT AND PLAN: Venous ulceration which appears stable and edema is improved. I do recommend for the patient to follow up in the Wound Clinic next week when stable for further wound care management likely. I think this wound would heal quite quickly with Unna boot. I am reluctant to put the Unna boot on today as the patient is not quite agreeing to come to the Wound Clinic next week early on. Therefore, we will wait until he is able to come for an outpatient appointment first. In the meantime, we used the same dressing and Tubigrip for edema control. We could actually use a 2-layer Tubigrip that he can remove at night as well. He can do that at home as well. Follow up in Wound Clinic in next week. Discharge orders were written for. SIENA BEJARANO MD CM:JOAQUIN [id number] SIENA BEJARANO M.D. 12/23/16 0507 interface
[~2016-12-20 19:39] MED LIST changes: +CARAFATE1 G1 PO; +PLAVIX75 M1 PO
[2016-12-20 19:41] VITALS: BP 124/69
[2016-12-20] MEDS ORDERED: ASPIRIN CHEWABL81 MG PO (19:48)
[2016-12-20] MEDS ORDERED: VITAMIN D33000 UNIT PO (19:51)
[2016-12-20] MEDS ORDERED: GAS RELIEF MAX PO (19:55)
[2016-12-20] MEDS ORDERED: PLAVIX75 M1 PO (19:56)
[2016-12-20 19:59] VITALS: BP 136/68
--- NOTE | 2016-12-20 20:00 | NUR ---
PEDAL DOPPLER DONE ON PATIENT, PATIENT HAD AUDIBLE AND EQUAL PULSES PRESENT.
[2016-12-20 20:07] LABS: BASO % 0.2 % (0.0-1.0); HEMATOCRIT 43.7 % (42.0-52.0); LYMPH # 2.2 10*3/uL (1.3-4.4); LYMPH % 21.3 % (27.0-41.0); MEAN CELL VOLUME 97.1 fl (80.0-94.0); MEAN CORPUSCULAR HGB 31.1 pg (27.0-31.0); MEAN PLATELET VOLUME 9.5 fl (9.6-12.3); MONO # 0.7 10*3/uL (0.1-1.0); MONO % 7.1 % (3.0-9.0); NEUT # 7.1 10*3/uL (2.3-7.9); NEUT % 70.6 % (47.0-73.0); PLATELET COUNT AUTOMATED 240 10*3/uL (130-400); RED CELL DISTRI WIDTH 13.4 % (0-14.5); WHITE BLOOD COUNT 10.1 10*3/uL (4.8-10.8)
[2016-12-20 20:11] LABS: ABG BASE EXCESS 2.9 mmol/L (-2.0-2.0); ABG HCO3 28.8 mmol/l (22-26); ABG O2 SATURATION 99.1 % (95-97); ARTERIAL BLOOD GAS PCO2 50.8 mmHg (35-45); ARTERIAL BLOOD GAS PH 7.37 (7.35-7.45)
[2016-12-20 20:23] LABS: ALBUMIN 2.6 gm/dl (3.1-4.5); ALKALINE PHOSPHATASE 155 U/L (45-117); BUN 20 mg/dl (7-24); CHLORIDE 102 mmol/L (98-107); CREATININE 0.97 mg/dL (0.70-1.30); LIPASE 92 U/L (73-393); MAGNESIUM 2.1 mg/dL (1.5-2.1); POTASSIUM 5.1 mmol/L (3.5-5.1); SGOT/AST 19 IU/L (3-35); SGPT/ALT 17 U/L (12-78); SODIUM 138 mmol/L (136-145); TOTAL PROTEIN 6.5 gm/dL (6.4-8.2)
[2016-12-20 20:36] VITALS: BP 118/88
--- NOTE | 2016-12-20 21:28 | NUR ---
ATTEMPTED TO CALL REPORT, UNABLE AT THIS TIME. NURSE FROM FLOOR WILL CALL WHEN ABLE.
--- NOTE | 2016-12-20 21:45 | NUR ---
A 76, admitted to , under the services of ARMANI Lao DO with a diagnosis of EXAC OF COPD. Chief complaint is SOB, CHEST PAIN. Patient arrived via ambulance from ER. Monitor applied. Initial assessment completed. Vital signs taken and recorded. ARMANI LAO DO notified of admission to the unit. Orders received. See assessment for past medical history, medications and allergies. Patient and/or family oriented to unit. [facility] visitation policy reviewed. Clothing/patient valuable form completed. JUSTIN MURRAY
[2016-12-20] MEDS ORDERED: PREDNISONE20 M1 PO (22:35)
--- NOTE | 2016-12-20 22:44 | NUR ---
MED REC UP TO DATE PER LIST PROVIDED FROM .
--- NOTE | 2016-12-20 22:46 | NUR ---
SPOKE WITH DR AYERS REGARDING CLARIFICATION FOR ORDERS, IV FLUIDS ARE ORDERED, BUT NO RATE, STATES TO RUN NS @ 100ML/HR, ALSO QUESTIONED IF DR BEJARANO WAS TO BE CONSULTED FOR WOUND TO RIGHT LOWER LEG, STATES HE WILL DISCUSS WITH DR WOODWARD IF HE CANCELLED CONSULT BY MISTAKE. NOTIFIED THAT MED REC IS UP TO DATE PER LIST PROVIDED BY .
--- NOTE | 2016-12-20 23:31 | NUR ---
PT BACK FROM CTA AT THIS TIME.
--- NOTE | 2016-12-20 23:56 | NUR ---
DR AYERS UPDATED ON PT'S STATUS AND RESULTS OF CTA, QUESTIONED WHETHER THEY STILL WANT IVF RUNNING AT 100 ML/HR. HE STATES WE CAN CANCEL THE IVF.
[2016-12-21] VITALS: BP 116/54
--- NOTE | 2016-12-21 04:00 | NUR ---
PT RESTING IN BED, NO DISTRESS NOTED. CALL LIGHT WITHIN REACH.
[2016-12-21 04:03] LABS: BILIRUBIN NEGATIVE (NEGATIVE); BLOOD 1+ (NEGATIVE); CLARITY CLEAR (CLEAR); COLOR YELLOW (YELLOW); GLUCOSE TRACE (NEGATIVE); KETONE TRACE (NEGATIVE); LEUKO ESTERASE NEGATIVE (NEGATIVE); NITRITE NEGATIVE (NEGATIVE); PH 5.5 (5.0-9.0); UROBILINOGEN 0.2 E.U./dl (0.2-1.0)
[2016-12-21 04:03] LABS: HEMATOCRIT 39.2 % (42.0-52.0); HEMOGLOBIN 12.8 g/dl (14.0-18.0); MEAN CELL VOLUME 95.8 fl (80.0-94.0); MEAN CORPUSCULAR HGB 31.3 pg (27.0-31.0); MEAN CORPUSCULAR HGB CONC 32.7 g/dl (33.0-37.0); MEAN PLATELET VOLUME 9.7 fl (9.6-12.3); PLATELET COUNT AUTOMATED 222 10*3/uL (130-400); RED BLOOD COUNT 4.09 10*6/uL (4.50-5.90); RED CELL DISTRI WIDTH 13.2 % (0-14.5)
[2016-12-21 04:20] LABS: ALBUMIN 2.4 gm/dl (3.1-4.5); ALKALINE PHOSPHATASE 157 U/L (45-117); BUN 24 mg/dl (7-24); CREATININE 1.11 mg/dL (0.70-1.30); MAGNESIUM 2.3 mg/dL (1.5-2.1); PHOSPHOROUS 2.8 mg/dL (2.5-4.9); SGOT/AST 20 IU/L (3-35); SGPT/ALT 21 U/L (12-78); TOTAL PROTEIN 6.1 gm/dL (6.4-8.2)
[2016-12-21 04:26] LABS: CHLORIDE 100 mmol/L (98-107); POTASSIUM 4.9 mmol/L (3.5-5.1); SODIUM 138 mmol/L (136-145)
[2016-12-21 04:28] LABS: WBC 0-2 wbc/hpf (0-5)
[2016-12-21 04:31] LABS: PLATELET SUFFICIENCY NORMAL (NORMAL); TOTAL CELLS COUNTED 100 #CELLS
--- NOTE | 2016-12-21 06:03 | NUR ---
MESSAGE LEFT ON THE VOICE MAIL AT THE WOUND CARE CENTER REGARDING NEW CONSULT FOR DR BEJARANO.
--- NOTE | 2016-12-21 06:06 | NUR ---
DR WEBBER NOTIFIED OF NEW CONSULT. STATES TO KEEP PT NPO EXCEPT MEDS.
[2016-12-21 08:00] VITALS: BP 108/54
--- NOTE | 2016-12-21 08:00 | NUR ---
Radio Sales Account Executive in to talk to patient. Patient states lives at HOME [place] [address] with HIS . There are 3 steps in the home. [place] [facility] [facility] [place] Home health services: NONE Patient's level of ADLs: INDEPENDENT Patient has working utilities: YES DME: WC/NEB/O2 FROM [facility] Follow-up physician's appointment after d/c: WILL BE MADE PRIOR TODC Does patient want to access PORTAL?: Discharge plan HOME. AMELIA CHILDS
--- NOTE | 2016-12-21 09:00 | NUR ---
PT HAS [facility]. WANTS [facility] TO PAY FOR THIS STAY. I CALLED THE [facility] AND WAS INFORMED THAT PT HAS NO TRAVEL BENEFITS AND HAS MEDICARE. STATES HE MUST STAY HERE UNDER HIS MEDICARE. EXPLAINED THIS TO PT. HE IS NOT HAPPY WITH [facility] BUT UNDERSTNADS WE MUST BILL HIS MEDICARE. SHAISTA HARRELL MESSAGED IN BILLING DEPT.
--- NOTE | 2016-12-21 10:09 | NUR ---
AUDREY ROWELINK [id number] Please refer to the physician's history and physical for past medical history, comorbid conditions, and allergies. Diagnosis: ACUTE EXACERBATION OF COPD Marin Score: 19,LOW OR NO RISK WOUND DESCRIPTIONS: Location of the wound: Right lower extremity Type of wound: full thickness Size: 7cm x 6.5cm x 0.1cm Tunneling: none Undermining: none Sinus Tract: none Presence of Exudate: Sanguineous Amount: Light Color: Black Odor: None Periwound Skin Appearance: Normal Wound edges: approximated Pain (associated with wound): none at the time of assessment How does patient state this happened? Patient states he stepped on the edge of a pizza box and it scraped his leg If wound is on legs/feet or hands, capillary refill time, pulses, color temp, sensation: capillary refill <3 seconds. Pedal pulses felt Surface the patient is resting on: Isoflex SKIN PREVENTION RECOMMENDATION: 1. Pressure redistribution support surface as appropriate 2. Elevate heels 3. Remove boots/TEDS every shift and reapply 4. Head of bed 30 degrees as tolerated 5. Assess nutrition and hydration 6. Manage moisture 7. Avoid the use of containment devices while in bed 8. Use absorptive products on surfaces limit layers of linens on bed 9. Turn and reposition every 1-2 hours in bed and every 1 hour in chair as tolerated 10. Weight shifts every 15 minutes while up in chair 11. Offloading with pillows or device to keep heels elevated off bed 12. Monitor skin at least every shift 13. Inspect under medical devices twice a day WOUND TREATMENT RECOMMENDATIONS: Consult Dr. Tran for possible debridement
--- NOTE | 2016-12-21 13:30 | NUR ---
INFORMED CONSENT OBTAINED FOR LEXISCAN NUCLEAR STRESS WITH DR. RAMIREZ. RESTING EKG SINUS TACHY WITH A RESTING HR OF 101 WITH BP OF 118/68. LUNGS DIMINISHED BS WITH SPO2 OF 94% WITH NASAL O2 AT 3L. PT COMPLETED A 1:00 LEXISCAN PROTOCOL RECEIVING LEXISCAN 0.4 MG IV OVER 10 SECONDS. HAD NO CHEST PAIN OR ANY EKG CHANGES. DID C/O NAUSEA AND ABDOMINAL CRAMPING THAT RESOLVED IN RECOVERY. HAD A PEAK HR OF 108 WITH BP OF 112/56. LAST RECOVERY HR OF 107 WITH BP OF 102/68. AWAITING SCANNING IN STABLE CONDITION.
[2016-12-21 16:00] VITALS: BP 142/70
--- NOTE | 2016-12-21 19:32 | NUR ---
PATIENT RESTING IN BED WITH EYES CLOSED. EASILY ARROUSABLE. NO NEEDS MADE. RESPS EASY AND REGULAR. BED IN LOWEST POSITION, CALL LIGHT IN REACH
[2016-12-21 20:00] VITALS: BP 128/57
[2016-12-22] VITALS: BP 111/53
--- NOTE | 2016-12-22 00:59 | NUR ---
PATIENT RESTING IN BED WITH EYES CLOSED. NO S/S OF DISTRESS. RESPS EASY AND REGULAR. BED IN LOWEST POSITION, CALL LIGHT IN REACH
--- NOTE | 2016-12-22 02:56 | NUR ---
24 HR chart check completed.
[2016-12-22 06:58] LABS: HEMATOCRIT 37.5 % (42.0-52.0); HEMOGLOBIN 12.2 g/dl (14.0-18.0); MEAN CELL VOLUME 95.4 fl (80.0-94.0); MEAN CORPUSCULAR HGB CONC 32.5 g/dl (33.0-37.0); MEAN PLATELET VOLUME 9.8 fl (9.6-12.3); PLATELET COUNT AUTOMATED 232 10*3/uL (130-400); RED BLOOD COUNT 3.93 10*6/uL (4.50-5.90); RED CELL DISTRI WIDTH 13.5 % (0-14.5); WHITE BLOOD COUNT 12.4 10*3/uL (4.8-10.8)
[2016-12-22 07:21] LABS: BUN 30 mg/dl (7-24); CHLORIDE 100 mmol/L (98-107); CREATININE 1.18 mg/dL (0.70-1.30); POTASSIUM 4.4 mmol/L (3.5-5.1); SODIUM 139 mmol/L (136-145)
[2016-12-22 07:22] LABS: PLATELET SUFFICIENCY NORMAL (NORMAL); TOTAL CELLS COUNTED 100 #CELLS
[2016-12-22 08:00] VITALS: BP 106/68
[2016-12-22 12:00] VITALS: BP 119/61
--- NOTE | 2016-12-22 12:18 | NUR ---
PHYSICAL THERAPY PAtient requests no PT at this time. Too fatigued and dyspneia per patient and family member present. Thank you fopr this referral. Christina Gardner,PT
[2016-12-22 16:00] VITALS: BP 121/63
--- NOTE | 2016-12-22 19:38 | NUR ---
PATIENT SITTING UP IN BED DOING BREATHING TREATMENT AND WATCHING TV. NO NEEDS MADE. BED IN LOWEST POSITOIN, CALL LIGHT IN REACH
[2016-12-22 20:00] VITALS: BP 118/60
--- NOTE | 2016-12-22 23:04 | NUR ---
24 HR chart check completed.
[2016-12-23] VITALS: BP 116/58
--- NOTE | 2016-12-23 02:53 | NUR ---
PATIENT RESTING IN BED WITH NO S/S OF DISTRESS. BED IN LOWEST POSITION, CALL LIGHT IN REACH
[2016-12-23 07:29] LABS: HEMATOCRIT 39.3 % (42.0-52.0); HEMOGLOBIN 12.6 g/dl (14.0-18.0); MEAN CELL VOLUME 97.3 fl (80.0-94.0); MEAN CORPUSCULAR HGB 31.2 pg (27.0-31.0); MEAN CORPUSCULAR HGB CONC 32.1 g/dl (33.0-37.0); MEAN PLATELET VOLUME 9.7 fl (9.6-12.3); PLATELET COUNT AUTOMATED 252 10*3/uL (130-400); RED BLOOD COUNT 4.04 10*6/uL (4.50-5.90); RED CELL DISTRI WIDTH 13.7 % (0-14.5); WHITE BLOOD COUNT 11.5 10*3/uL (4.8-10.8)
[2016-12-23 07:53] LABS: TOTAL CELLS COUNTED 100 #CELLS
[2016-12-23 07:54] LABS: PLATELET SUFFICIENCY NORMAL (NORMAL)
[2016-12-23 07:55] LABS: BUN 32 mg/dl (7-24); CHLORIDE 101 mmol/L (98-107); CREATININE 1.11 mg/dL (0.70-1.30); POTASSIUM 4.4 mmol/L (3.5-5.1); SODIUM 140 mmol/L (136-145)
[2016-12-23 08:00] VITALS: BP 115/68
[2016-12-23] MEDS ORDERED: PREDNISONE20 M1 PO (10:25)
[2016-12-23] MEDS ORDERED: DOXYCYCLINE100 M3 PO (10:26)
[2016-12-23 12:00] VITALS: BP 121/55
--- NOTE | 2016-12-23 12:59 | NUR ---
DISCHARGED HOME AFTER INSTRUCTIONS GIVEN.
== END 2016-12-23 12:59 | disposition home or self-care (01) | DRG 166 ==
LOC: ED 19:39 → 4E 21:07 → EDHOLD 21:07 → 4E 21:09
PROVIDERS: Emergency Medicine Emergency Medical Services; Family Medicine; Internal Medicine; ADMIT Emergency Medicine
PROC: 0HBKXZZ Excision of Right Lower Leg Skin, External Approach (ICD-10-PCS; principal; 2016-12-22)
DX: J44.1 Chronic obstructive pulmonary disease with (acute) exacerbation (principal); J96.20 Acute and chronic respiratory failure, unspecified whether with hypoxia or hypercapnia; E44.0 Moderate protein-calorie malnutrition; J90 Pleural effusion, not elsewhere classified; L97.919 Non-pressure chronic ulcer of unspecified part of right lower leg with unspecified severity; J98.11 Atelectasis; I72.3 Aneurysm of iliac artery; Z99.81 Dependence on supplemental oxygen; I10 Essential (primary) hypertension; R07.9 Chest pain, unspecified; F17.210 Nicotine dependence, cigarettes, uncomplicated; R91.8 Other nonspecific abnormal finding of lung field; I71.4 Abdominal aortic aneurysm, without rupture; I25.10 Atherosclerotic heart disease of native coronary artery without angina pectoris; I83.019 Varicose veins of right lower extremity with ulcer of unspecified site; D72.810 Lymphocytopenia; F41.9 Anxiety disorder, unspecified; K21.9 Gastro-esophageal reflux disease without esophagitis; E78.5 Hyperlipidemia, unspecified; I25.2 Old myocardial infarction; Z88.6 Allergy status to analgesic agent; Z85.51 Personal history of malignant neoplasm of bladder; Z98.42 Cataract extraction status, left eye; Z98.41 Cataract extraction status, right eye; Z80.1 Family history of malignant neoplasm of trachea, bronchus and lung; Z82.5 Family history of asthma and other chronic lower respiratory diseases; Z79.82 Long term (current) use of aspirin; Z79.899 Other long term (current) drug therapy; Z68.22 Body mass index [BMI] 22.0-22.9, adult

== ENCOUNTER 2016-12-25 23:49 | Emergency (ER) | payer MEDICARE ==
[~2016-12-25] VITALS: Ht 175.2 cm; Wt 70.3 kg
[~2016-12-25 23:49] MED LIST changes: +ASPIRIN CHEWABL81 MG PO; +DOXYCYCLINE100 M3 PO; +GAS RELIEF MAX PO; +VITAMIN D33000 UNIT PO
[2016-12-25 23:55] VITALS: BP 110/60
[2016-12-26 00:21] LABS: BILIRUBIN 1+ (NEGATIVE); BLOOD 3+ (NEGATIVE); CLARITY CLOUDY (CLEAR); GLUCOSE NEGATIVE (NEGATIVE); KETONE TRACE (NEGATIVE); LEUKO ESTERASE NEGATIVE (NEGATIVE); NITRITE NEGATIVE (NEGATIVE); PH 5.5 (5.0-9.0); UROBILINOGEN 0.2 E.U./dl (0.2-1.0)
[2016-12-26 00:26] LABS: BASO % 0.1 % (0.0-1.0); HEMATOCRIT 39.4 % (42.0-52.0); HEMOGLOBIN 12.9 g/dl (14.0-18.0); LYMPH # 1.4 10*3/uL (1.3-4.4); LYMPH % 15.1 % (27.0-41.0); MEAN CELL VOLUME 96.6 fl (80.0-94.0); MEAN CORPUSCULAR HGB 31.6 pg (27.0-31.0); MEAN CORPUSCULAR HGB CONC 32.7 g/dl (33.0-37.0); MEAN PLATELET VOLUME 9.2 fl (9.6-12.3); MONO # 0.7 10*3/uL (0.1-1.0); MONO % 7.5 % (3.0-9.0); NEUT # 7.2 10*3/uL (2.3-7.9); NEUT % 76.5 % (47.0-73.0); PLATELET COUNT AUTOMATED 225 10*3/uL (130-400); RED BLOOD COUNT 4.08 10*6/uL (4.50-5.90); RED CELL DISTRI WIDTH 13.7 % (0-14.5); WHITE BLOOD COUNT 9.4 10*3/uL (4.8-10.8)
[2016-12-26 00:36] LABS: ACT PARTIAL THROMBO TIME 22.6 SECONDS (20.8-31.5); INTERNATIONAL NORM RATIO 0.9 (2.0-3.5)
[2016-12-26 00:38] LABS: BACTERIA 4+; RBC TNTC rbc/hpf (0-2)
[2016-12-26 00:39] LABS: COLOR RED (YELLOW)
[2016-12-26 00:51] LABS: BUN 45 mg/dl (7-24); CHLORIDE 106 mmol/L (98-107); CREATININE 1.15 mg/dL (0.70-1.30); SODIUM 140 mmol/L (136-145); TROPONIN I 0.036 ng/ml (<0.045)
[2016-12-26] MEDS ORDERED: NORCO 5-325 TA1 EACH PO (02:01)
== END 2016-12-26 03:15 | disposition home or self-care (01) ==
LOC: ED 23:49
PROVIDERS: Emergency Medicine Emergency Medical Services
DX: R31.9 Hematuria, unspecified (principal); J44.9 Chronic obstructive pulmonary disease, unspecified; I25.10 Atherosclerotic heart disease of native coronary artery without angina pectoris; K21.9 Gastro-esophageal reflux disease without esophagitis; I10 Essential (primary) hypertension; Z88.6 Allergy status to analgesic agent; Z79.82 Long term (current) use of aspirin; Z79.899 Other long term (current) drug therapy

== ENCOUNTER 2017-03-13 13:32 | Inpatient (IN) | payer MEDICARE ==
[~2017-03-13] VITALS: Ht 175.3 cm; Wt 65.3 kg
--- NOTE | ~2017-03-13 | EKG ---
[place], [place] ELECTROCARDIOGRAM REPORT NAME: LINK VENTURA JR UNIT #: [id number] ROOM: 528 DOCTOR: GLORY JENNINGS MD,MEÑO BIRTHDATE: [birth year] DOS: 03/13/2017 ELECTROCARDIOGRAM The electrocardiogram done on 03/13/2017 at 8:59 p.m. Normal sinus rhythm were noted with heart rate 86 beats per minute. Heart rate was noted in the V1, V2, V3 with possible right ventricular hypertrophy in the patient would be considered. Changes of possibility of old inferior myocardial infarction would be considered as well. MEÑO HOLDER MD CM:EKGRPT:ELECTROCARDIOGRAM REPORT [id number] MEÑO JENNINGS MD
--- NOTE | ~2017-03-13 | CON ---
[place], [place] REPORT OF CONSULTATION NAME: LINK VENTURA JR [facility] #: [id number] UNIT #: [id number] ROOM: 528 DOCTOR: MEÑO KHAN MD BIRTHDATE: [birth year] DOS: 03/14/2017 PULMONARY CONSULTATION EVALUATION CONSULTATION REQUESTED BY: Hospitalist services. REASON FOR CONSULTATION: Assessment of the ongoing respiratory symptoms, exacerbation of COPD. HISTORY OF PRESENT ILLNESS: A 77-year-old white male who has been known to me from the past history of uncomplicated severe persistent bronchial asthma, chronic hypoxic respiratory failure as well as centrilobular emphysema. The patient presented to the Emergency Room and he was hospitalized on 03/13/2017 under care of hospitalist services. The patient reported symptoms of increased shortness of breath ongoing for the past couple of weeks ____ symptoms. The patient has been noted progressive worsening related to the coughing with chest congestion and intermittent purulent sputum expectoration occurred in the past couple of days. The patient's airway was noted with clear sputum expectoration. He was also reported symptoms of wheezing and chest tightness. Denies symptoms of chest pain. The patient presented to the hospital and currently admitted to the hospital with acute exacerbation of COPD. He denies symptoms of hemoptysis with that. Denies any symptoms of chest trauma. REVIEW OF SYSTEMS: CONSTITUTIONAL: Fatigue and tiredness noted without symptoms of fever or chills. EYES: Denies any burning, redness, or tenderness. EARS, NOSE, THROAT SYMPTOMS: No sore throat, hoarseness, otalgia, postnasal drainage or epistaxis. CARDIOVASCULAR: Denies anginal pain, edema or pain of the lower extremities. GASTROINTESTINAL: Some pain was described in the lower portion of the abdomen, seem to be resolved. There was no diarrhea. MUSCULOSKELETAL: Denies acute joint pain, redness, or tenderness. SKIN: Multiple bruising of the skin was noted related to usage of prednisone previously. CENTRAL NERVOUS SYSTEM: No dizziness, headache, diplopia, syncopal episodes. Remaining systems were reviewed and they were noted all negative. PAST MEDICAL HISTORY: Known with; 1. History of centrilobular emphysema. 2. History of uncomplicated severe persistent bronchial asthma. 3. Chronic nicotine dependence. 4. History of vagus nerve compression. 5. Gastroesophageal reflux. 6. Essential hypertension. 7. Chronic hypercapnia. 8. Chronic hypoxic respiratory failure, use of oxygen 3 liters nasal cannula. 9. Hypercholesterolemia. 10. Steroids use. [place], [place] REPORT OF CONSULTATION NAME: LINK VENTURA JR UNIT #: [id number] ROOM: 528 DOCTOR: MEÑO KHAN MD BIRTHDATE: [birth year] PAST SURGICAL HISTORY: 1. The patient was noted with fracture of the nose with rhinoplasty. 2. Right carotid endarterectomy. 3. Cataract extraction with lens implantation. 4. Past therapeutic bronchoscopies. The patient's last bronchoscopy done in 08/2016. 5. Cystoscopy and biopsy of the bladder mass. In the patient, he had a history of bladder cancer, which has been treated with the localized therapy. The patient with BCG and cystoscopy by the urologist in [place], [place]. SOCIAL HISTORY: The patient is , lives at home, and has 4 children. Denies any history of alcohol, illicit drug use. Tobacco use noted since teenager, a pack of cigarettes per day at home to 2 packs previously. There is no history of alcohol use or illicit drug use. FAMILY HISTORY: The patient's mother with complications related lung cancer and 67-year-old Father from complications related to COPD. REVIEW OF SYSTEMS: Past medical record review for the patient, previously the patient has been admitted in the hospital and treated under care of the hospitalist services for 3 days from 12/20 until 12/23/2016 for acute exacerbation of COPD at that time. CURRENT MEDICATIONS: The current medications administered to the patient were noted as use of vitamin D, Plavix, omeprazole, lorazepam, Mucinex, Carafate, IV Rocephin, Zithromax, Solu-Medrol 60 mg q.8 hours, DuoNeb q.4h., and other p.r.n. medications. DRUG ALLERGIES: NOTED ALLERGY TO THE MORPHINE SULPHATE. PHYSICAL EXAMINATION: GENERAL: This is a 77-year-old male who has been currently noted awake and alert without any distress. Height of 5 feet 9 inches, weight of 151 pounds, BMI 22.3. VITAL SIGNS: Normal temperature, respiratory rate of the patient recorded 18-20. Heart rate of 82-83, blood pressure 114/56-110/60. Pulse oxygen saturation on 3 liters nasal cannula 95% saturation, on previous admission on 6 liters with 96% saturation. HEENT: Age-related changes. NECK: Supple. Head was atraumatic. CARDIOVASCULAR SYSTEM: S1, S2 audible. LUNGS: The patient was noted with general reduction in the breath sounds in the lungs were noted bilaterally. Expiratory wheezing. There were no crackles. ABDOMEN: Soft, nontender. CENTRAL NERVOUS SYSTEM: Cranial nerves 2-12 intact. No focal deficits. MUSCULOSKELETAL: No deformities. SKIN: Noted with multiple areas of bruising of the skin in upper extremity and other parts of the body, most likely related to the medication use of prednisone at home and also related to use of the Plavix. [place], [place] REPORT OF CONSULTATION NAME: LINK VENTURA JR UNIT #: [id number] ROOM: 528 DOCTOR: GLORY JENNINGS MD,MEÑO BIRTHDATE: [birth year] LABORATORY DATA: Reviewed for this patient. The CBC that was done on admission on 03/13/2017, WBC count 13.9, hemoglobin 13.5, hematocrit 40.9, and platelet count 239,000. Lactic acid on 03/13/2017 was normal. PT/PTT on 03/13/2017 normal. CMP on 03/13/2017, BUN 35, creatinine were normal. CO2 was 33. Chest x-ray 1 view on 03/13/2017 was noted with changes of COPD with scattered area for scarring in the lungs. The CBC of this morning, normal WBC count. The CBC was normal. PT/PTT this morning was noted normal. BMP this morning, BUN 40, glucose rather 165, CO2 35. The remaining electrolytes were normal. Troponin 3 sets yesterday were noted as normal. IMPRESSION: 1. The patient who has been currently admitted to the hospital with progressive increased respiratory symptoms related to the acute bacterial bronchitis and acute exacerbation of chronic obstructive pulmonary disease, and bronchial asthma. 2. History of chronic nicotine dependence. 3. History of prednisone use intermittently at home, 10 mg higher at times. 5. History of general anxiety disorder as well. 6. History of urinary bladder cancer, which has been known previously as well. 7. Hyperglycemia related to corticosteroids. 8. Bruising of the skin related to use of prednisone as well as the Plavix with that any other bleeding abnormalities on diastasis. 9. Chronic hypercapnic and hypoxic respiratory failure. PLAN OF TREATMENT: Continue the current dose of Solu-Medrol. The patient is on bronchodilators and antibiotics. Sputum for Gram stain culture has been ordered, pending to be done. Continue bronchodilator current medical treatment. Titrate oxygen supplementation and maintain a saturation of 92% or greater. Increase rather reduction of the steroids in this patient based on progression of illness. Mild hyperglycemia. The patient will be monitored. Other supportive therapy, plan and management, and care plan. Usual treatment. Additional treatment changes will be done based on the progression of the illness. All other supportive plan and management ____ in progress. The nicotine replacement patches the patient wish to use those to overcome any nicotine withdrawal. MEÑO HOLDER MD CM:CONSTR:REPORT OF CONSULTATION 1047 03/15/17 0143 interface
--- NOTE | ~2017-03-13 | EKG ---
[place], [place] ELECTROCARDIOGRAM REPORT NAME: LINK VENTURA JR UNIT #: [id number] ROOM: 528 DOCTOR: GLORY JENNINGS MD,MEÑO BIRTHDATE: [birth year] DOS: 03/13/2017 TIME: 2:35 p.m. Normal sinus rhythms were noted, heart rate 28 per minute. 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 There were no changes of acute ischemia. MEÑO HOLDER MD CM:EKGRPT:ELECTROCARDIOGRAM REPORT 1235 [id number] MEÑO JENNINGS MD
--- NOTE | ~2017-03-13 | EKG ---
[place], [place] ELECTROCARDIOGRAM REPORT NAME: LINK VENTURA JR UNIT #: [id number] ROOM: 528 DOCTOR: GLORY JENNINGS MD,MEÑO BIRTHDATE: [birth year] DOS: 03/13/2017 ELECTROCARDIOGRAM The electrocardiogram done on 03/13/2017 at 5:54 p.m. Normal sinus rhythm were noted for this patient with a possibility of right ventricular hypertrophy, old inferior wall myocardial infarction was noted. There were no changes of acute ischemia. MEÑO HOLDER MD CM:EKGRPT:ELECTROCARDIOGRAM REPORT [id number] MEÑO JENNINGS MD
[~2017-03-13 13:32] MED LIST changes: +NORCO 5-325 TA1 EACH PO
[2017-03-13 14:07] VITALS: BP 110/60
[2017-03-13 14:40] LABS: BASO % 0.1 % (0.0-1.0); HEMATOCRIT 40.9 % (42.0-52.0); HEMOGLOBIN 13.5 g/dl (14.0-18.0); LYMPH % 7.5 % (27.0-41.0); MEAN CELL VOLUME 94.9 fl (80.0-94.0); MEAN CORPUSCULAR HGB 31.3 pg (27.0-31.0); MEAN PLATELET VOLUME 9.6 fl (9.6-12.3); MONO # 1.3 10*3/uL (0.1-1.0); MONO % 9.1 % (3.0-9.0); NEUT # 11.5 10*3/uL (2.3-7.9); NEUT % 82.6 % (47.0-73.0); PLATELET COUNT AUTOMATED 239 10*3/uL (130-400); RED BLOOD COUNT 4.31 10*6/uL (4.50-5.90); RED CELL DISTRI WIDTH 13.3 % (0-14.5); WHITE BLOOD COUNT 13.9 10*3/uL (4.8-10.8)
[2017-03-13 14:48] LABS: ACT PARTIAL THROMBO TIME 24.4 SECONDS (20.8-31.5); INTERNATIONAL NORM RATIO 0.9 (2.0-3.5)
[2017-03-13 14:57] LABS: ALBUMIN 2.5 gm/dl (3.1-4.5); ALKALINE PHOSPHATASE 161 U/L (45-117); BUN 35 mg/dl (7-24); CHLORIDE 96 mmol/L (98-107); CREATININE 1.01 mg/dL (0.70-1.30); SGOT/AST 16 IU/L (3-35); SGPT/ALT 18 U/L (12-78); SODIUM 137 mmol/L (136-145); TOTAL PROTEIN 6.5 gm/dL (6.4-8.2)
[2017-03-13 14:58] LABS: TROPONIN I 0.024 ng/ml (<0.045)
[2017-03-13 16:28] VITALS: BP 126/71
--- NOTE | 2017-03-13 16:45 | NUR ---
A 77, admitted to 5E, under the services of MARIALUISA Freire DO with a diagnosis of COPD. Chief complaint is SOB, ABD PAIN . Patient arrived via stretcher from ER. Monitor applied. Initial assessment completed. Vital signs taken and recorded. MARIALUISA FREIRE DO notified of admission to the unit. Orders received. See assessment for past medical history, medications and allergies. Patient and/or family oriented to unit. visitation policy reviewed. Clothing/patient valuable form completed. MATEO PEREZ
[2017-03-13 17:07] VITALS: BP 106/62
--- NOTE | 2017-03-13 17:28 | NUR ---
DR HOLDER NOTIFIED OF CONSULT.
[2017-03-13] MEDS ORDERED: ATIVAN0.5 MG PO (18:22)
[2017-03-13] MEDS ORDERED: PREDNISONE10 M1 PO (18:22)
[2017-03-13] MEDS ORDERED: OXYCODONE HCL5 MG PO (18:23)
--- NOTE | 2017-03-13 18:26 | NUR ---
MEDICATIONS VERIFIED WITH [facility] AND .
[2017-03-13 20:00] VITALS: BP 110/63
[2017-03-14] VITALS: BP 114/56
--- NOTE | 2017-03-14 00:46 | NUR ---
24 HR chart check completed.
[2017-03-14 05:24] LABS: BILIRUBIN NEGATIVE (NEGATIVE); BLOOD 3+ (NEGATIVE); CLARITY SL CLOUDY (CLEAR); COLOR YELLOW (YELLOW); GLUCOSE NEGATIVE (NEGATIVE); KETONE NEGATIVE (NEGATIVE); LEUKO ESTERASE NEGATIVE (NEGATIVE); NITRITE NEGATIVE (NEGATIVE); SPECIFIC GRAVITY 1.025 (1.005-1.030); UROBILINOGEN 0.2 E.U./dl (0.2-1.0)
[2017-03-14 05:35] LABS: RBC TNTC rbc/hpf (0-2)
[2017-03-14 06:27] LABS: BASO % 0.1 % (0.0-1.0); HEMATOCRIT 37.2 % (42.0-52.0); LYMPH # 0.9 10*3/uL (1.3-4.4); MEAN CELL VOLUME 96.1 fl (80.0-94.0); MEAN CORPUSCULAR HGB CONC 32.3 g/dl (33.0-37.0); MEAN PLATELET VOLUME 10.1 fl (9.6-12.3); MONO # 0.2 10*3/uL (0.1-1.0); NEUT # 8.8 10*3/uL (2.3-7.9); NEUT % 88.1 % (47.0-73.0); PLATELET COUNT AUTOMATED 218 10*3/uL (130-400); RED BLOOD COUNT 3.87 10*6/uL (4.50-5.90); RED CELL DISTRI WIDTH 13.2 % (0-14.5)
[2017-03-14 06:45] LABS: ACT PARTIAL THROMBO TIME 26.1 SECONDS (20.8-31.5); INTERNATIONAL NORM RATIO 0.9 (2.0-3.5)
[2017-03-14 06:47] LABS: BUN 40 mg/dl (7-24); CHLORIDE 100 mmol/L (98-107); CHOLESTEROL 203 mg/dL (<200); CREATININE 0.97 mg/dL (0.70-1.30); HDL CHOLESTEROL 69 mg/dl (40-60); LDL CHOLESTEROL 119 mg/dL (9-159); POTASSIUM 4.2 mmol/L (3.5-5.1); SODIUM 140 mmol/L (136-145); TRIGLYCERIDES 73 mg/dl (<150); VLDL CHOLESTEROL 15 mg/dL (6-40)
[2017-03-14 06:53] LABS: THYROID STIM HORMONE (HS) 0.298 uIU/ml (0.358-4.75)
[2017-03-14 07:27] LABS: VITAMIN D, 25-HYDROXY 41.1 ng/mL (30-100)
--- NOTE | 2017-03-14 07:35 | NUR ---
VEELINK VALERIO JR [id number] Please refer to the physician's history and physical for past medical history, comorbid conditions, and allergies. Diagnosis: COPD WITH EXACERBATION Marin Score: 15,AT RISK WOUND DESCRIPTIONS: Location of the wound: right 2nd toe Type of wound: dti Size: 0.1cm x 0.2cm x 0 Tunneling: none Undermining: none Sinus Tract: none Presence of Exudate: none Amount: None Color: deep purple Odor: None Periwound Skin Appearance: Erythema Wound edges: closed Pain (associated with wound): none at time of assessment How does patient state this happened? pt states he stays in bed. Location of the wound: left heel Type of wound: DTI Size: 0.2cm x 0.2cm x 0cm Tunneling: none Undermining: none Sinus Tract: none Presence of Exudate: none Amount: None Color: deep purple Odor: None Periwound Skin Appearance: Erythema Wound edges: closed Pain (associated with wound): none at time of assessment How does patient state this happened? pt states stays in his bed right heel red and blanchable. Surface the patient is resting on: Isoflex SKIN PREVENTION RECOMMENDATION: 1. Pressure redistribution support surface as appropriate 2. Elevate heels 3. Remove boots/TEDS every shift and reapply 4. Head of bed 30 degrees as tolerated 5. Assess nutrition and hydration 6. Manage moisture 7. Avoid the use of containment devices while in bed 8. Use absorptive products on surfaces limit layers of linens on bed 9. Turn and reposition every 1-2 hours in bed and every 1 hour in chair as tolerated 10. Weight shifts every 15 minutes while up in chair 11. Offloading with pillows or device to keep heels elevated off bed 12. Monitor skin at least every shift 13. Inspect under medical devices twice a day WOUND TREATMENT RECOMMENDATIONS: Sureprep right 2nd toe BID leave open to air. Sureprep left heel BID and cover with optifoam gentle after sureprep is dried. Sureprep right heel BID and cover with optifoam gentle after sureprep is dried for protection. Heel raiser pro boots.
--- NOTE | 2017-03-14 08:00 | NUR ---
Cooler Supervisor in to talk to patient. Patient states lives at HOME with HIS . There are 3 steps in [place] home. [place] [facility] [facility] [place] [facility]: [facility]ONE [facility] Patient's level of ADLs: MINIMAL ASSIST Patient has working utilities: YES DME: WC/NEB/O2 FROM [facility], MOTORIZED SCOOTER, [facility], CHAIR, WALKER Follow-up physician's appointment after d/c: WILL BE MADE PRIOR TO DC Does patient want to access PORTAL?: Discharge plan HOME. AMELIA CHILDS
[2017-03-14 09:00] VITALS: BP 110/58
[2017-03-14 12:00] VITALS: BP 109/52
[2017-03-14 16:00] VITALS: BP 117/56
[2017-03-14] MEDS ORDERED: SYMB160 INH (18:31)
--- NOTE | 2017-03-14 18:33 | NUR ---
PT BROUGHT IN PT INHALERS BECAUSE PT CALLED HER AT HOME TO BRING THEM IN. MEDS ADDED TO MED REC AND DR AYERS NOTIFIED OF PT REQUEST TO TAKE THEM.
--- NOTE | 2017-03-14 19:35 | NUR ---
PT. FAMILY ASKED NURSE TO SPEAK WITH PT. ABOUT STAYING IN THE HOSPITAL. UPON SPEAKING WITH THE PT. HE IS PERSISTANT ABOUT SIGNING OUT AMA TO SMOKE A CIGARETTE. DIFFERENT ALTERANTIVES WERE OFFERED, BUT PT. REFUSED. PT. IS STILL REQUESTING TO SIGN OUT AMA.
--- NOTE | 2017-03-14 19:39 | NUR ---
DR. PHIPPS NOTIFIED OF PT. REQUEST TO SIGN OUT AMA.
--- NOTE | 2017-03-16 14:42 | NUR ---
HEENA RECEIVED CALL FROM [facility] REQUESTING DISCHARGE INFORMATIO FOR CONTINUITY OF CARE. HEENA FAXED INFORMATION.
== END 2017-03-14 19:57 | disposition left against medical advice (07) | DRG 871 ==
LOC: ED 13:32 → 5E 16:01 → EDHOLD 16:01 → 5E 16:08
PROVIDERS: Emergency Medicine; Internal Medicine; ADMIT Internal Medicine
DX: A41.9 Sepsis, unspecified organism (principal); J69.0 Pneumonitis due to inhalation of food and vomit; E43 Unspecified severe protein-calorie malnutrition; J96.11 Chronic respiratory failure with hypoxia; D53.9 Nutritional anemia, unspecified; J96.12 Chronic respiratory failure with hypercapnia; Z99.81 Dependence on supplemental oxygen; E83.41 Hypermagnesemia; T14.8XXA Other injury of unspecified body region, initial encounter; J44.1 Chronic obstructive pulmonary disease with (acute) exacerbation; J44.0 Chronic obstructive pulmonary disease with (acute) lower respiratory infection; E87.1 Hypo-osmolality and hyponatremia; T45.525A Adverse effect of antithrombotic drugs, initial encounter; Z53.21 Procedure and treatment not carried out due to patient leaving prior to being seen by health care provider; X58.XXXA Exposure to other specified factors, initial encounter; R31.9 Hematuria, unspecified; I25.10 Atherosclerotic heart disease of native coronary artery without angina pectoris; I10 Essential (primary) hypertension; K21.9 Gastro-esophageal reflux disease without esophagitis; F17.210 Nicotine dependence, cigarettes, uncomplicated; J45.50 Severe persistent asthma, uncomplicated; E78.00 Pure hypercholesterolemia, unspecified; Z96.1 Presence of intraocular lens; J20.9 Acute bronchitis, unspecified; F41.1 Generalized anxiety disorder; R73.9 Hyperglycemia, unspecified; T38.0X5A Adverse effect of glucocorticoids and synthetic analogues, initial encounter; Z79.52 Long term (current) use of systemic steroids; Z82.5 Family history of asthma and other chronic lower respiratory diseases; Z80.1 Family history of malignant neoplasm of trachea, bronchus and lung; I25.2 Old myocardial infarction; Z79.899 Other long term (current) drug therapy; Z88.6 Allergy status to analgesic agent; Z85.51 Personal history of malignant neoplasm of bladder; Z98.42 Cataract extraction status, left eye; Z98.41 Cataract extraction status, right eye; Y92.89 Other specified places as the place of occurrence of the external cause; Y93.89 Activity, other specified; Y99.8 Other external cause status; Z68.22 Body mass index [BMI] 22.0-22.9, adult